=== PATIENT | male | born 1965 | race Caucasian/White ===

== ENCOUNTER 2019-06-11 13:19 | Outpatient (CLI) | payer OTHER ==
--- NOTE | 2019-06-11 14:00 | RAD ---
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 No discrete erosive change. No widening of the sacroiliac joints or the pubic symphysis. Postsurgical anchors overlie the soft tissu es inferior to the pubic symphysis. Round calcifications within the pelvis inferiorly suggest phleboliths. IMPRESSION: Degenerative changes as above.
[2019-06-11 14:47] LABS: Bilirubin Negative (Negative); Blood, Urine Trace (Negative); Clarity Clear (Clear); Glucose, Urine (Dipstick) Negative (Negative); Leukocyte Negative (Negative); Nitrite Negative (Negative); Protein, Urine (Dipstick) Negative (Neg-Trace); Urobilinogen 0.2 mg/dL (Less than 2)
[2019-06-11 15:03] LABS: Bacteria/HPF Rare-Few HPF (None Seen); RBC/HPF 0-3 HPF (0-3); Squamous Epithelial None Seen HPF (0-3); WBC/HPF None Seen HPF (0-3)
[2019-06-13 07:15] LABS: Total PSA 1.5 ng/mL (0.0-4.0)
== END 2019-06-11 13:20 | disposition home or self-care (01) ==
LOC: SCSRAD 13:19
PROVIDERS: ATTEND Family Medicine
DX: M46.1 Sacroiliitis, not elsewhere classified (principal); N40.0 Benign prostatic hyperplasia without lower urinary tract symptoms; R30.0 Dysuria; M53.3 Sacrococcygeal disorders, not elsewhere classified
CPT/HCPCS: 36415; 72202; 81001; 84153; 84154